=== PATIENT | female | born 1995 | race Caucasian/White ===

== ENCOUNTER 2019-10-08 17:41 | Emergency (ER) | payer BC ==
[~2019-10-08] VITALS: Ht 154.9 cm; Wt 50.9 kg
[2019-10-08 18:37] VITALS: BP 136/89
== END 2019-10-08 18:45 | disposition home or self-care (01) ==
LOC: ER 17:42
DX: Z03.818 Encounter for observation for suspected exposure to other biological agents ruled out (principal); J02.9 Acute pharyngitis, unspecified
CPT/HCPCS: 99281; 99283